=== PATIENT | male | born 1970 | race Caucasian/White ===

== ENCOUNTER 2017-04-09 20:15 | Inpatient (IN) | payer OTHER ==
[~2017-04-09] VITALS: Ht 162.6 cm; Wt 61.0 kg
[2017-04-09] MEDS ORDERED: METHYLPREDNISOLONE 125 MG INJ IV STA (20:36)
[2017-04-09] MEDS ORDERED: ALBUTEROL 0.5% (NEB) 2.5 MG/0.5 ML AMP INH STA ×2 (20:36→22:22)
[2017-04-09] MEDS ORDERED: MAGNESIUM SULFATE 2 GM/50 ML 50 ML IVPB STA (20:36)
[2017-04-09] MEDS ORDERED: IPRATROPIUM (NEB) 0.5 MG/2.5 ML AMP INH STA (20:36)
[2017-04-09] MEDS ORDERED: MAGNESIUM SULFATE 1 GM/D5W 100 ML IVPB ONE (21:00)
[2017-04-09 21:18] LABS: BASOPHIL # 0.1 10^3/ul (0.0-0.1); BASOPHILS % 0.6 % (0.0-2.0); EOSINOPHILS # 1.1 10^3/ul (0.0-0.5); EOSINOPHILS % 8.4 % (0.0-7.0); HEMATOCRIT 50.5 % (42.0-52.0); HEMOGLOBIN 16.5 g/dl (14.0-18.0); LYMPHOCYTES # 1.3 10^3/ul (0.8-2.9); LYMPHOCYTES % 9.8 % (15.0-51.0); MEAN CORPUSCULAR HEMOGLOBIN 30.7 pg (29.0-33.0); MEAN CORPUSCULAR HGB CONC 32.7 g/dl (32.0-37.0); MEAN CORPUSCULAR VOLUME 93.9 fl (82.0-101.0); MONOCYTE # 0.9 10^3/ul (0.3-0.9); MONOCYTES % 6.8 % (0.0-11.0); NEUTROPHIL # 9.5 10^3/ul (1.6-7.5); PLATELET COUNT 236 10^3/UL (140-415); RED BLOOD COUNT 5.38 10^6/ul (4.70-6.10); RED CELL DISTRIBUTION WIDTH 12.5 % (11.5-14.5); WHITE BLOOD COUNT 12.9 10^3/ul (4.8-10.8)
[2017-04-09 21:36] LABS: ANION GAP 14 (8-16); BLOOD UREA NITROGEN 21 mg/dl (7-20); CALCIUM 9.5 mg/dl (8.4-10.2); CARBON DIOXIDE 25 mmol/L (21-31); CHLORIDE 105 mmol/L (97-110); CREATININE 0.86 mg/dl (0.61-1.24); GLUCOSE 90 mg/dl (70-220); POTASSIUM 3.7 mmol/L (3.5-5.1); SODIUM 140 mmol/L (135-144)
--- NOTE | 2017-04-09 21:51 | RADRPT ---
PROCEDURE: XR Chest. CLINICAL INDICATION: chest pain, asthma TECHNIQUE: Single frontal view of the chest was obtained COMPARISON: None FINDINGS: The heart and mediastinum are within normal limits. The lungs are clear. There is no pleural effusion or pneumothorax. RPTAT: AA IMPRESSION: No acute disease. .Robert Garcia MD, MD Date Time Electronically viewed and signed by .Robert Garcia MD, on 04/09/2017 21:51 .S/
[2017-04-09 22:01] LABS: TROPONIN-I < 0.012 ng/ml (0.00-0.12)
--- NOTE | 2017-04-09 22:25 | ERA ---
ER Documentation Chief Complaint Date/Time DATE: 04/09/17 TIME: 22:23 Chief Complaint SOB and cough x 1 week, denies asthma or lung problem HPI This is a 47-year-old male who presents to the emergency room for evaluation of shortness of breath. The patient says he says shortness of breath which is gotten progressively worse over the past week. Patient denies having any history of asthma, denies any fevers or chills associated with this but states that he is having difficulty breathing worse with deep inspiration and. The patient came to the ER today for evaluation of symptoms. ROS All systems reviewed and are negative except as per history of present illness. Medications Home Meds No Active Prescriptions or Reported Meds Allergies Allergies: Coded Allergies: No Known Allergy (Unverified , 04/09/17) PMhx/Soc Medical and Surgical Hx: pt denies Medical Hx, pt denies Surgical Hx History of Surgery: No Anesthesia Reaction: No Hx Neurological Disorder: No Hx Respiratory Disorders: No Hx Cardiac Disorders: No Hx Psychiatric Problems: No Hx Miscellaneous Medical Probl: No Hx Alcohol Use: Yes Hx Substance Use: Yes (injects crystal meth) Hx Tobacco Use: No Smoking Status: Unknown if ever smoked Physical Exam Vitals Vital Signs Date Time Temp Pulse Resp B/P Pulse Ox O2 Delivery O2 Flow Rate FiO2 04/09/17 21:01 Simple Mask 15 04/09/17 20:51 75 26 94 21 04/09/17 20:45 Simple Mask 15.0 04/09/17 20:21 97.8 93 20 133/93 94 Physical Exam INITIAL VITAL SIGNS: Reviewed by me GENERAL: The patient is well developed a mild respiratory distress using accessory muscles HEENT: Pupils equal, round, and reactive to light. EOMI. There is no scleral icterus. NECK: C-spine is soft and supple, there is no meningismus. There is no cervical lymphadenopathy. LUNGS: Diffuse wheezing bilaterally HEART: Tachycardic, no murmurs, clicks, rubs or gallops. ABDOMEN: Soft, non-tender, non-distended. There are bowel sounds in all four quadrants. No rebound or guarding. EXTREMITIES: There is no peripheral cyanosis or edema. No focal swelling or erythema. NEUROLOGICAL: The patient moves all four extremities with 5/5 strength. Cranial nerves II - XII are intact. Normal gait. Alert and oriented SKIN: There is no apparent rash or petechiae. HEME/LYMPHATIC: There is no evidence of excessive bruising or lymphedema. PSYCHIATRIC: The patient does not appear anxious or depressed. Result Diagram: 04/09/17204704/09/172047 Results 24 hrs Laboratory Tests Test 04/09/17 20:48 White Blood Count 12.910^3/ul Red Blood Count 5.3810^6/ul Hemoglobin 16.5g/dl Hematocrit 50.5% Mean Corpuscular Volume 93.9fl Mean Corpuscular Hemoglobin 30.7pg Mean Corpuscular Hemoglobin Concent 32.7g/dl Red Cell Distribution Width 12.5% Platelet Count 88559^3/UL Mean Platelet Volume 10.0fl Neutrophils % 74.0% Lymphocytes % 9.8% Monocytes % 6.8% Eosinophils % 8.4% Basophils % 0.6% Nucleated Red Blood Cells % 0.0/100WBC Neutrophils # 9.510^3/ul Lymphocytes # 1.310^3/ul Monocytes # 0.910^3/ul Eosinophils # 1.110^3/ul Basophils # 0.110^3/ul Nucleated Red Blood Cells # 0.010^3/ul Sodium Level 140mmol/L Potassium Level 3.7mmol/L Chloride Level 105mmol/L Carbon Dioxide Level 25mmol/L Anion Gap 14 Blood Urea Nitrogen 21mg/dl Creatinine 0.86mg/dl Glucose Level 90mg/dl Calcium Level 9.5mg/dl Troponin I < 0.012ng/ml Current Medications Medications (Trade) Dose Ordered Sig/Jon Route PRN Reason Start Time Stop Time Status Last Admin Dose Admin Albuterol (Proventil 0.5% (Neb)) 15 mg ONCE STAT INH 04/09/17 20:36 04/09/17 20:37 DC 04/09/17 20:47 Ipratropium [place] (Atrovent 0.02% (Neb)) 1 mg ONCE STAT INH 04/09/17 20:36 04/09/17 20:37 DC 04/09/17 20:49 Methylprednisolone Sodium Succinate 125 mg 125 mg ONCE STAT IV 04/09/17 20:36 04/09/17 20:37 DC 04/09/17 20:51 Magnesium Sulfate 50 ml @ 25 mls/hr ONCE STAT IVPB 04/09/17 20:36 04/09/17 21:11 DC Magnesium Sulfate/ Dextrose (Magnesium Sulfate 1 Gm/D5W) 100 ml @ 100 mls/hr ONCE ONCE IVPB 04/09/17 21:00 04/09/17 21:59 DC 04/09/17 20:52 Procedures/MDM Chest X-ray 1V Interpreted by me: Soft Tissue: No acute abnormalities Bones: No acute abnormalities Mediastinum/Cardiac Silhouette/Lungs: [No acute abnormalities] This 47-year-old male presents to the ER for evaluation of wheezing and shortness of breath. When I evaluated this patient he had diffuse wheezing, although he was not hypoxic he was in mild respiratory distress and was using accessory muscles for breathing. The patient has no history of asthma in the past. The patient was given a breathing treatment with albuterol, Atrovent, I did give the patient 1 g of magnesium IV. When I reevaluated this patient he is still had wheezing and still was in a small amount of respiratory distress. The patient was given a second breathing treatment will be placed in for admission at this time. Critical Care: Excluding all billable procedures Time: 33 minutes Treatments/Evaluations: Close monitoring and treatment of unstable vital signs, cardiorespiratory, and neurologic status, while maintaining tight balance of fluid, respiratory, and cardiac interventions. Departure Diagnosis: Primary Impression: Shortness of breath Additional Impression: Acute asthma Condition: Stable GENIA MARSHALL DO Apr 09, 2017 22:25
[2017-04-09] MEDS ORDERED: ONDANSETRON 4 MG INJ IV PRN ×2 (22:30→23:30)
[2017-04-09] MEDS ORDERED: ACETAMINOPHEN 325 MG TAB PO PRN ×2 (22:30→23:30)
[2017-04-09] MEDS ORDERED: BISACODYL (EC) 5 MG TAB PO PRN (23:30)
[2017-04-09] MEDS ORDERED: NACL 0.9% 3 ML SYG IV SCH (23:30)
[2017-04-09] MEDS: FAMOTIDINE 20 MG TAB PO SCH (23:30)
[2017-04-09] MEDS ORDERED: DOCUSATE SODIUM 100 MG CAP PO PRN (23:30)
[2017-04-10] VITALS (15 sets, daily range): BP systolic 110–126; BP diastolic 58–80; PULSE 55–132; RESP 17–20; Ht 162.6 cm; Wt 61.0 kg
[2017-04-10 00:12] LABS: D-DIMER 393.19 ng/ml (<460)
[2017-04-10] MEDS: ALBUTEROL 0.083% (NEB) 2.5 MG/3 ML AMP HHN SCH ×3 (02:20→08:36)
[2017-04-10 03:11] LABS: CREATINE KINASE 193 IU/L (23-200)
[2017-04-10 04:12] LABS: CK-MB 3.37 ng/ml (0.0-2.4); TROPONIN-I < 0.012 ng/ml (0.00-0.12)
[2017-04-10 07:31] LABS: ABNORMAL IP MESSAGE 1; BASOPHILS % 0.2 % (0.0-2.0); EOSINOPHILS % 0.2 % (0.0-7.0); HEMATOCRIT 47.7 % (42.0-52.0); HEMOGLOBIN 15.6 g/dl (14.0-18.0); LYMPHOCYTES # 0.4 10^3/ul (0.8-2.9); LYMPHOCYTES % 6.3 % (15.0-51.0); MEAN CORPUSCULAR HEMOGLOBIN 31.1 pg (29.0-33.0); MEAN CORPUSCULAR HGB CONC 32.7 g/dl (32.0-37.0); MEAN CORPUSCULAR VOLUME 95.2 fl (82.0-101.0); MEAN PLATELET VOLUME 9.6 fl (7.4-10.4); MONOCYTE # 0.1 10^3/ul (0.3-0.9); NEUTROPHIL # 5.4 10^3/ul (1.6-7.5); PLATELET COUNT 225 10^3/UL (140-415); POSITIVE DIFF @See below; RED BLOOD COUNT 5.01 10^6/ul (4.70-6.10); RED CELL DISTRIBUTION WIDTH 12.4 % (11.5-14.5); WHITE BLOOD COUNT 5.9 10^3/ul (4.8-10.8)
[2017-04-10 07:40] LABS: CREATINE KINASE 128 IU/L (23-200)
[2017-04-10 07:45] LABS: ALBUMIN 4.2 g/dl (3.3-4.9); ALBUMIN/GLOBULIN RATIO 1.13; BILIRUBIN,INDIRECT 0.4 mg/dl (0-1.1); BILIRUBIN,TOTAL 0.4 mg/dl (0.2-1.3); CALCIUM 9.2 mg/dl (8.4-10.2); CHOL/HDL RATIO 2.7 RATIO; CREATININE 0.63 mg/dl (0.61-1.24); MAGNESIUM 1.9 mg/dl (1.7-2.5); POTASSIUM 4.4 mmol/L (3.5-5.1); TOTAL PROTEIN 7.9 g/dl (6.1-8.1)
[2017-04-10 08:02] LABS: TROPONIN-I < 0.012 ng/ml (0.00-0.12)
[2017-04-10 08:45] LABS: THYROID STIMULATING HORMONE 0.111 MIU/L (0.465-4.680)
--- NOTE | 2017-04-10 08:49 | HP ---
Date/Time of Note Date/Time of Note DATE: 04/10/17 TIME: 08:37 Assessment/Plan VTE Prophylaxis VTE Prophylaxis Intervention: SCD's Lines/Catheters IV [facility]ter [facility]from [facility] Saline Lock Urinary Cath still in place: No Assessment/Plan Chief Complaint/Hosp Course This is a 47 year male being admitted to the telemetry floor for: #1 shortness of breath: COPD/asthma exacerbation versus CHF. BNP is within normal values at this time making CHF exacerbation less likely. He does not report a history of asthma before though he does report a history of smoking. At the current time we will treat him as a COPD exacerbation with duo nebs every 4 hours. Initially he did receive albuterol every 4 hours. Start him on daily prednisone burst. He did receive a loading dose in the ED. As the patient also did have fevers at home as well as a slightly elevated white blood cell count we will treat him with antibiotics at this time Levaquin daily. If symptoms do not improve patient may need a CT of the chest to evaluate further though the x-ray right now this time is within normal values. Patient will likely need a pulmonary function testing as an outpatient. D-dimer was 393 which makes PE less likely. Patient also may benefit from outpatient allergy testing as he does state that he recently moved into a new house and has noticed mold and dust. #2 DVT GI prophylaxis: SCDs, acid shaun Further treatment strategy will be implemented for the clinical course Problems: HPI/ROS Admit Date/Time Admit Date/Time Apr 09, 2017 at 22:22 Hx of Present Illness Chief complaint: Shortness of breath This is a 47-year-old male who presents to the emergency room for evaluation of shortness of breath. The patient says he says shortness of breath which is gotten progressively worse over the past week. Patient does report subjective fevers and cough productive of yellowish sputum. Patient denies having any history of asthma, states that he is having difficulty breathing worse with deep inspiration and. Denies any sick contacts or recent travel. Does report a smoking history of 1 pack per day 10 years. Of note patient does state that approximately 3-4 weeks ago he did move into a new house and he has noticed dust and mold there as well. Allergies: NKDA Medications: None ROS Const: As per HPI Eyes : No pain discharge or redness or change in visual acuity ENT: No pain, sore throat, congestion, congestion, dysphagia or discharge Respiratory: As per HPI Cardiovascular: No chest pain, palpitation, PND, or edema GI : no change in appetite, abdominal pain, nausea, vomiting, diarrhea, constipation, or change in the color his stool Genitourinary: No dysuria, hematuria, flank pain , discharge or CVA tenderness Musculoskeletal: No joint pain, back pain, neck pain, restricted range of motion in neck or joints Skin: No rash, bruising or hives Neuro: No headache, dizziness, syncope, seizure, focal weakness Endocrine: No polyuria, polydipsia, temperature intolerance Psych: No hallucination, depression, anxiety or suicidal ideation PMH/Family/Social Past Medical History Medical History: no pertinent history Past Surgical History Left eyelid surgery Family History Significant Family History: no pertinent family hx Social History Alcohol Use: none Smoking Status: Current every day smoker (1 pack per day 7 years) Drug Use: none Exam/Review of Systems Vital Signs Vitals Vital Signs Date Time Temp Pulse Resp B/P Pulse Ox O2 Delivery O2 Flow Rate FiO2 04/10/17 08:00 55 04/10/17 07:33 98.2 18 110/58 96 04/10/17 05:22 Nasal Cannula 2.0 04/09/17 20:51 21 Intake and Output 04/09/17 04/09/17 04/10/17 14:59 22:59 06:59 Intake Total 400 ml Balance 400 ml Exam Exam General: Patient is a well-developed male lying in bed in no acute respiratory distress HEENT: Atraumatic, normocephalic. The pupils are equal, round and reactive. Extraocular motor are intact Neck: Supple with full range of motion. No rigidity or meningismus Chest: Nontender Lungs: Diffuse expiratory wheezing bilaterally, no tactile fremitus, cough Heart: Normal S1-S2, Regular rhythm and rate. No overt murmurs appreciated Abdomen: Soft , nontender, nondistended , bowel sounds are present. No guarding no rebound tenderness , No masses or organomegaly. No costovertebral temporal angle mass Extremities: Normal to inspection, no edema no cyanosis Neurologic: Normal mental status, speech normal, cranial nerves II through XII are intact, motor and sensory are intact, no focal weakness Additional Comments PROCEDURE: XR Chest. CLINICAL INDICATION: chest pain, asthma TECHNIQUE: Single frontal view of the chest was obtained COMPARISON: None FINDINGS: The heart and mediastinum are within normal limits. The lungs are clear. There is no pleural effusion or pneumothorax. RPTAT: AA IMPRESSION: No acute disease. .Robert Garcia MD, Date Time Electronically viewed and signed by .Robert Garcia MD, MD on 04/09/2017 21: 51 .S/ CC: GENIA MARSHALL DO Labs Result Diagram: 04/10/1763504/10/17635 Medications Medications Current Medications Ondansetron HCl (Zofran Inj) 4 mg Q6H PRN IV NAUSEA AND/OR VOMITING; Start 04/09/17 at 23:30 Acetaminophen (Tylenol Tab) 650 mg Q6H PRN PO PAIN LEVEL 1-3 OR FEVER; Start 04/09/17 at 23:30 Docusate Sodium (Colace) 100 mg Q12H PRN PO CONSTIPATION; Start 04/09/17 at 23: 30 Bisacodyl (Dulcolax) 5 mg DAILY PRN PO CONSTIPATION; Start 04/09/17 at 23:30 Famotidine (Pepcid) 20 mg Q12 PO Last administered on 04/09/17t 23:30; Admin Dose 20 MG; Start 04/09/17 at 23:30 Prednisone 40 mg 40 mg DAILY PO ; Start 04/10/17 at 09:00 Levofloxacin/ Dextrose (Levaquin 750 Mg/ D5W 150 ml (Pmx)) 150 ml @ 100 mls/hr Q24H IVPB ; Start 04/10/17 at 09:00 AMANDA SANTORO Apr 10, 2017 08:48
[2017-04-10] MEDS: FAMOTIDINE 20 MG TAB PO SCH ×2 (09:11→20:55)
[2017-04-10] MEDS: predniSONE 20 MG TAB PO SCH (09:11)
[2017-04-10] MEDS: LEVOFLOXACIN 750MG/D5W (PMX) 150 ML IVPB SCH (09:11)
[2017-04-10] MEDS: ALBUTEROL/IPRATROPIUM (NEB) 3 ML AMP HHN SCH ×4 (13:00→20:20)
[2017-04-10 19:51] LABS: BARBITURATES NEGATIVE (NEGATIVE); BENZODIAZEPINES NEGATIVE (NEGATIVE); CANNABINOIDS NEGATIVE (NEGATIVE); COCAINE NEGATIVE (NEGATIVE); OPIATES NEGATIVE (NEGATIVE)
[2017-04-11] VITALS (9 sets, daily range): BP systolic 113–137; BP diastolic 64–76; PULSE 47–61; RESP 16–19
[2017-04-11] MEDS: ALBUTEROL/IPRATROPIUM (NEB) 3 ML AMP HHN SCH ×5 (00:32→16:42)
[2017-04-11 08:46] LABS: BASOPHIL # 0.1 10^3/ul (0.0-0.1); BASOPHILS % 0.4 % (0.0-2.0); EOSINOPHILS # 0.1 10^3/ul (0.0-0.5); EOSINOPHILS % 0.9 % (0.0-7.0); HEMATOCRIT 49.2 % (42.0-52.0); HEMOGLOBIN 16.2 g/dl (14.0-18.0); LYMPHOCYTES # 1.9 10^3/ul (0.8-2.9); LYMPHOCYTES % 12.2 % (15.0-51.0); MEAN CORPUSCULAR HEMOGLOBIN 31.1 pg (29.0-33.0); MEAN CORPUSCULAR HGB CONC 32.9 g/dl (32.0-37.0); MEAN CORPUSCULAR VOLUME 94.4 fl (82.0-101.0); MEAN PLATELET VOLUME 9.6 fl (7.4-10.4); MONOCYTES % 6.2 % (0.0-11.0); NEUTROPHIL # 12.5 10^3/ul (1.6-7.5); PLATELET COUNT 267 10^3/UL (140-415); RED BLOOD COUNT 5.21 10^6/ul (4.70-6.10); RED CELL DISTRIBUTION WIDTH 12.6 % (11.5-14.5); WHITE BLOOD COUNT 15.6 10^3/ul (4.8-10.8)
[2017-04-11 09:04] LABS: MAGNESIUM 1.9 mg/dl (1.7-2.5); PHOSPHORUS 4.6 mg/dl (2.5-4.9)
[2017-04-11 09:17] LABS: ALBUMIN 3.9 g/dl (3.3-4.9); ALBUMIN/GLOBULIN RATIO 1.02; BILIRUBIN,INDIRECT 0.2 mg/dl (0-1.1); BILIRUBIN,TOTAL 0.2 mg/dl (0.2-1.3); CALCIUM 9.6 mg/dl (8.4-10.2); CREATININE 0.82 mg/dl (0.61-1.24); POTASSIUM 4.5 mmol/L (3.5-5.1); TOTAL PROTEIN 7.7 g/dl (6.1-8.1)
[2017-04-11] MEDS: predniSONE 20 MG TAB PO SCH (09:30)
[2017-04-11] MEDS: FAMOTIDINE 20 MG TAB PO SCH (09:30)
[2017-04-11] MEDS: LEVOFLOXACIN 750MG/D5W (PMX) 150 ML IVPB SCH (09:30)
--- NOTE | 2017-04-11 16:22 | DS ---
Date/Time of Note Date/Time of Note DATE: 04/11/17 TIME: 16:18 Discharge Summary Admission/Discharge Info Admit Date/Time Apr 11, 2017 at 15:10 Discharge Date/Time PATIENT ELOPED Discharge Diagnosis 1. COPD exacerbation. 2. Substance abuse. Patient Condition: Fair Procedures CXR IMPRESSION: No acute disease. Hx of Present Illness Chief complaint: Shortness of breath This is a 47-year-old male who presented to the emergency room for evaluation of shortness of breath. The patient verbalized that his shortness of breath has gotten progressively worse over the past week. Patient did report subjective fevers and cough productive of yellowish sputum. Patient denied having any history of asthma, stated that he is having difficulty breathing worse with deep inspiration and. Denied any sick contacts or recent travel. Did report a smoking history of 1 pack per day 10 years. Of note, patient did state that approximately 3-4 weeks ago he did move into a new house and he has noticed dust and mold there as well. Allergies: NKDA Medications: None Hospital Course Patient was admitted to inpatient setting. The patient was started on tapering dose of steroids and inhaled bronchodilators. The patient was provided with supplemental oxygen. Patient was started on empiric antibiotics for any underlying acute tracheobronchitis. The patient's symptoms improved. The patient has known history of amphetamine abuse. The patient's chest x-ray did not show any evidence of cardiomegaly. There was an order for 2D echocardiogram to be done to evaluate for any underlying cardiomyopathy possibly secondary to substance abuse. On 04/11/2017, the patient was noticed to be not in the room. Nursing staff checked the patient on the unit. The patient was noted to be missing. He left the hospital with the IV heplock in place. No discharge planning was done since the patient eloped from the hospital. Case discussed with Dr. Mckee. Home Meds No Active Prescriptions or Reported Meds Follow-up Plan No discharge planning was done since the patient eloped. Primary Care Provider Lane Obando MD Time spent on discharge: < 30 minutes Pending Labs Laboratory Tests Test 04/11/17 08:01 04/11/17 08:02 White Blood Count 15.610^3/ul (4.8-10.8) Red Blood Count 5.2110^6/ul (4.70-6.10) Hemoglobin 16.2g/dl (14.0-18.0) Hematocrit 49.2% (42.0-52.0) Mean Corpuscular Volume 94.4fl (82.0-101.0) Mean Corpuscular Hemoglobin 31.1pg (29.0-33.0) Mean Corpuscular Hemoglobin Concent 32.9g/dl (32.0-37.0) Red Cell Distribution Width 12.6% (11.5-14.5) Platelet Count 83272^3/UL (140-415) Mean Platelet Volume 9.6fl (7.4-10.4) Neutrophils % 80.0% (39.0-77.0) Lymphocytes % 12.2% (15.0-51.0) Monocytes % 6.2% (0.0-11.0) Eosinophils % 0.9% (0.0-7.0) Basophils % 0.4% (0.0-2.0) Nucleated Red Blood Cells % 0.0/100WBC (0.0-0.0) Neutrophils # 12.510^3/ul (1.6-7.5) Lymphocytes # 1.910^3/ul (0.8-2.9) Monocytes # 1.010^3/ul (0.3-0.9) Eosinophils # 0.110^3/ul (0.0-0.5) Basophils # 0.110^3/ul (0.0-0.1) Nucleated Red Blood Cells # 0.010^3/ul (0.0-0.0) Sodium Level 137mmol/L (135-144) Potassium Level 4.5mmol/L (3.5-5.1) Chloride Level 105mmol/L (97-110) Carbon Dioxide Level 24mmol/L (21-31) Anion Gap 13 (8-16) Blood Urea Nitrogen 24mg/dl (7-20) Creatinine 0.82mg/dl (0.61-1.24) Glucose Level 98mg/dl (70-220) Calcium Level 9.6mg/dl (8.4-10.2) Phosphorus Level 4.6mg/dl (2.5-4.9) Magnesium Level 1.9mg/dl (1.7-2.5) Total Bilirubin 0.2mg/dl (0.2-1.3) Direct Bilirubin 0.00mg/dl (0.00-0.20) Indirect Bilirubin 0.2mg/dl (0-1.1) Aspartate Amino Transf (AST/SGOT) 26IU/L (15-46) Alanine Aminotransferase (ALT/SGPT) 29IU/L (13-69) Alkaline Phosphatase 86IU/L (42-121) Total Protein 7.7g/dl (6.1-8.1) Albumin 3.9g/dl (3.3-4.9) Globulin 3.80g/dl (1.3-3.2) Albumin/Globulin Ratio 1.02 MICHAELLE BAILEY NP Apr 11, 2017 16:22 MICHAELLE BAILEY NP Apr 11, 2017 16:22
== END 2017-04-11 15:10 | disposition left against medical advice (07) | DRG 191 ==
LOC: E/R 20:15 → MS4 22:22 → OBSVTOIN 04-11 15:10
PROVIDERS: ADMIT Family Medicine; ATTEND Family Medicine
DX: J44.1 Chronic obstructive pulmonary disease with (acute) exacerbation (principal); J45.901 Unspecified asthma with (acute) exacerbation; F19.10 Other psychoactive substance abuse, uncomplicated
CPT/HCPCS: 71010; 80048; 80053; 80061; 80307; 82550; 82553; 83036; 83735; 83880; 84100; 84439; 84443; 84484; 85025; 85378; 94640; 94644; 94645; 96374; 96375; G0378; J1956; J2930; J3475; J7512